=== PATIENT | male | born 1960 | race Caucasian/White ===

== ENCOUNTER 2018-05-29 14:06 | Emergency (ER) | payer OTHER ==
[~2018-05-29] VITALS: Ht 160 cm; Wt 79.4 kg
[2018-05-29] MEDS ORDERED: AVAPRO150 MG PO (14:57)
== END 2018-05-29 17:38 | disposition home or self-care (01) ==
LOC: ER 14:06
DX: K63.89 Other specified diseases of intestine (principal)